=== PATIENT | male | born 1980 | race Caucasian/White ===

== ENCOUNTER 2017-05-27 07:39 | Emergency (ER) | payer OTHER ==
[2017-05-27 08:08] VITALS: BP 137/89; PULSE 79; RESP 16; TEMP 97.9; O2SAT 96
--- NOTE | 2017-05-27 08:18 | EDPHY ---
H & P Stated Complaint: pain in testicals 3 weeks Time Seen by Provider: 05/27/17 08:08 HPI/ROS: CHIEF COMPLAINT: Urethral pain HISTORY OF PRESENT ILLNESS: Patient is a 36-year-old man with no significant past medical history who comes to the emergency department complaining of mild urethral discomfort and stinging. He states that it dose not necessarily happen when he urinates but just randomly. No erythema or swelling or discoloration. No discharge. He has been monogamous with the same female for over a year. He states that they did try rectal intercourse 3 weeks ago and is condom broke. He has been concerned ever since. He thinks that it may be in his head but he is worried that he got an infection. No belly pain. No testicular pain. No flank pain. No fever. No pain with ejaculation. REVIEW OF SYSTEMS: Constitutional: denies: chills, fever, recent illness, recent injury EENTM: denies: blurred vision, double vision, nose congestion Respiratory: denies: cough, shortness of breath Cardiac: denies: chest pain, irregular heart rate, lightheadedness, palpitations Gastrointestinal/Abdominal: denies: abdominal pain, diarrhea, nausea, vomiting, blood streaked stools Genitourinary: See HPI, denies: dysuria, frequency, hematuria Musculoskeletal: denies: joint pain, muscle pain Skin: denies: lesions, rash, jaundice, bruising Neurological: denies: headache, numbness, paresthesia, tingling, dizziness, weakness Hematologic/Lymphatic: denies: blood clots, easy bleeding, easy bruising Immunologic/allergic: denies: HIV/AIDS, transplant EXAM: GENERAL: Well-appearing, well-nourished and in no acute distress. HEAD: Atraumatic, normocephalic. EYES: Pupils equal round and reactive to light, extraocular movements intact, sclera anicteric, conjunctiva are normal. ENT: TMs normal, nares patent, oropharynx clear without exudates. Moist mucous membranes. NECK: Normal range of motion, supple without lymphadenopathy or JVD. LUNGS: Breath sounds clear to auscultation bilaterally and equal. No wheezes rales or rhonchi. HEART: Regular rate and rhythm without murmurs, rubs or gallops. ABDOMEN: Soft, nontender, normoactive bowel sounds. No guarding, no rebound. No masses appreciated. : Normal exam, no discharge with milking. No testicular tenderness. Negative hernia exam, no erythema or swelling BACK: No CVA tenderness, no spinal tenderness, step-offs or deformities EXTREMITIES: Normal range of motion, no pitting or edema. No clubbing or cyanosis. NEUROLOGICAL: Cranial nerves II through XII grossly intact. Normal speech, normal gait. 5/5 strength, normal movement in all extremities, normal sensation PSYCH: Normal mood, normal affect. SKIN: Warm, dry, normal turgor, no visible rashes or lesions. Source: Patient Exam Limitations: No limitations - Personal History Tetanus Vaccine Date: unsure - Medical/Surgical History Hx Asthma: No Hx Chronic Respiratory Disease: No Hx Diabetes: No Hx Cardiac Disease: No Hx Renal Disease: No Hx Cirrhosis: No Hx Alcoholism: No Hx HIV/AIDS: No Hx Splenectomy or Spleen Trauma: No Other PMH: ortho surgeries, lung surgery, 17 eye surgeries, concussions, - Family History Significant Family History: No pertinent family hx - Social History Smoking Status: Current every day smoker Alcohol Use: Sober Drug Use: None Constitutional: Initial Vital Signs Temperature (C) 36.6 C 05/27/17 08:04 Heart Rate 79 05/27/17 08:04 Respiratory Rate 16 05/27/17 08:04 Blood Pressure 137/89 H 05/27/17 08:04 O2 Sat (%) 96 05/27/17 08:04 O2 Delivery Mode Room Air Allergies/Adverse Reactions: Penicillins Allergy (Verified 05/27/17 08:08) Home Medications: Medication Instructions Recorded Cephalexin [Keflex] 500 mg PO TID #21 cap 05/27/17 Medical Decision Making ED Course/Re-evaluation: Will treat the patient for presumed urinary tract infection. He is quite confident that he is not at risk for STDs. I will test for this as well however. We will send urine cultures. Patient thinks that this may all be in his head but was to get it checked for sure. Agree with this plan. I will start him on Keflex presumptively at this time. Differential Diagnosis: Partial list of the Differential diagnosis considered include but were not limited to; urinary tract infection, STD and although unlikely based on the history and physical exam, I also considered , anxiety testicular torsion, kidney stone epididymitis. I discussed these differential diagnoses and the plan with the patient as well as the usual and expected course. The patient understands that the diagnosis is provisional and that in medicine we are not always correct and that further workup is often warranted. Usual and customary warnings were given. All of the patient's questions were answered. The patient was instructed to return to the emergency department should the symptoms at all worsen or return, otherwise to followup with the physician as we discussed. - Data Points Laboratory Results: 05/27/17 05/27/17 08:30 08:05 Urine Color YELLOW Urine Appearance CLEAR Urine pH 5.5 (5.0-7.5) Ur Specific [place] <= 1.005 (1.002-1.030) Urine Protein NEGATIVE (NEGATIVE) Urine Ketones NEGATIVE (NEGATIVE) Urine Blood NEGATIVE (NEGATIVE) Urine Nitrate NEGATIVE (NEGATIVE) Urine Bilirubin NEGATIVE (NEGATIVE) Urine Urobilinogen 0.2 EU EU (0.2-1.0) Ur Leukocyte Esterase NEGATIVE (NEGATIVE) Urine RBC 0-1 /hpf /hpf (0-3) Urine WBC NONE SEEN /hpf /hpf (0-3) Ur Epithelial Cells TRACE /lpf /lpf (NONE-1+) Amorphous Sediment TRACE /hpf /hpf (NONE-1+) Urine Bacteria TRACE /hpf H /hpf (NONE SEEN) Urine Glucose NEGATIVE (NEGATIVE) C.trachomatis RNA (TMA) Pending N.gonorrhoeae RNA (TMA) Pending Departure - Departure Disposition: Home, Routine, Self-Care Clinical Impression: Urethral irritation Condition: Good Instructions: Urinary Tract Infection in Men (ED) Additional Instructions: Your urine culture results will be back in 2 days. If they are negative she may discontinue the antibiotics. Referrals: NONE *PRIMARY CARE P,. [Primary Care Provider] - As per Instructions Prescriptions: Cephalexin [Keflex] 500 mg PO TID #21 cap
[2017-05-27 08:43] LABS: COLOR YELLOW; LEUKOCYTE ESTERASE,URINE NEGATIVE (NEGATIVE); NITRITE,URINE NEGATIVE (NEGATIVE); PH,URINE 5.5 (5.0-7.5)
[2017-05-27 09:06] LABS: RBC,URINE 0-1 /hpf (0-3); WBC,URINE NONE SEEN /hpf (0-3)
[2017-05-27 09:07] LABS: AMORPHOUS TRACE /hpf (NONE-1+); BACTERIA TRACE /hpf (NONE SEEN)
[2017-05-28 14:19] LABS: CHLAMYDIA AMPLIFICATION GENPRB NEGATIVE (NEGATIVE)
== END 2017-05-27 08:41 | disposition home or self-care (01) ==
LOC: CED 07:39
DX: N32.89 Other specified disorders of bladder (principal); F17.200 Nicotine dependence, unspecified, uncomplicated
CPT/HCPCS: 81003-PO; 81015-PO

== ENCOUNTER 2017-06-26 07:15 | Emergency (ER) | payer OTHER ==
[2017-06-26] MEDS ORDERED: cefTRIAXone 250 MG VIAL IM ONE (07:27)
[2017-06-26] MEDS ORDERED: AZITHROMYCIN 250 MG TAB PO ONE (07:27)
[2017-06-26 07:30] VITALS: BP 132/98; PULSE 74; RESP 12; TEMP 97.7; O2SAT 97
--- NOTE | 2017-06-26 07:34 | EDPHY ---
H & P Time Seen by Provider: 06/26/17 07:18 HPI/ROS: HPI Urinary complaints. 36-year-old male by private vehicle. This patient complains of intermittent burning with urination ongoing for about a month now. He was seen in the emergency department approximately 1 month ago here. He was not tested for STIs at that time. His urinalysis was negative. He was treated for a urinary tract infection with Keflex. I reviewed his culture results from that visit and there was no growth. He states that he has been with a girl and has been monogamous. He reports last sexual relation was about 2-3 weeks ago. He reports that he broke up with her because he found out that she was engaged with multiple other sexual partners. He reports that over the last 2-3 weeks he has had more of a sensation of intermittent burning and discomfort in his urethra with urinating. He denies any gross hematuria discoloration of urinary no purulent discharge. No penile or genital lesions. He denies fever. No other complaints ROS: Constitutional: No fever, no chills. No weakness. Respiratory: No cough. No shortness of breath. Cardiac: No chest pain, no palpitations. Gastrointestinal: No abdominal pain, no vomiting, no diarrhea. Genitourinary: No hematuria. As above. Musculoskeletal: No back pain. No neck pain. No myalgias or arthralgias. Skin: No rashes. Neurological: No headache. No focal weakness or altered sensation. Past medical history: Significant past medical history. No prescription medications. Social history: As above. He is here by herself. Nonsmoker. Drinks alcohol socially. Denies IV drugs or street drugs. Physical Exam: General Appearance: Alert, no distress. This patient is responding to questions appropriately and in full sentences. This patient appears well- hydrated and well-nourished. Eyes: Pupils equal and round no pallor or injection. No lid edema, erythema or injection. : Testicles are normal on exam. Normal lie. No epididymal swelling or tenderness. No ecchymosis or erythema. No warmth. No masses. No local evidence of torsion. No testicular or penile lesions. No purulence expressed at the penile meatus. No evidence of traumatic genital injury. Gastrointestinal: Abdomen is soft and nontender, no masses, bowel sounds normal. No focal tenderness at McBurney's point. No De León sign. Neurological: Motor sensory function is grossly intact. Cranial nerves are normal. Gait is normal. Skin: Warm and dry, no rashes. Musculoskeletal: Neck is supple and nontender. Extremities are symmetrical. All joints range without pain or impingement. Psychiatric: No agitation. No depression. Database: EKG: Imaging: Procedures: Emergency department course: Urine specimen obtained. Urinalysis results reviewed. She is assays ordered. Results to be obtained in approximately 3 days. This is the patient's 2nd visit for this complaint. He is concerned about sexually transmitted infection. He will be treated accordingly with a g of oral azithromycin and 250 mg of IM Rocephin to be given emergency department. 7:50 a.m., patient re-evaluated. Resting comfortably at this time. I discussed the results of his urinalysis. I explained that he needed to follow up on results of his GC and chlamydia test. He will do this. I will provide him with referral to a urologist for re-evaluation and further management giving this is 2nd visit for this type of complaint. He is in agreement with this plan. Return to emergency department precautions reviewed with him. All of his questions were answered. He was discharged in good condition. Differential Diagnosis: The differential diagnosis on this patient includes but is not limited to sexually transmitted infection, urinary tract infection, urethral inflammation. This represents a partial list of diagnoses considered. These considerations are based on history, physical exam, past history, reassessment and diagnostic testing. Smoking Status: Current every day smoker Constitutional: Initial Vital Signs Temperature (C) 36.5 C 06/26/17 07:25 Heart Rate 74 06/26/17 07:25 Respiratory Rate 12 06/26/17 07:25 Blood Pressure 132/98 H 06/26/17 07:25 O2 Sat (%) 97 06/26/17 07:25 O2 Delivery Mode Room Air Allergies/Adverse Reactions: Penicillins Allergy (Verified 06/26/17 07:29) Home Medications: Medication Instructions Recorded Cephalexin [Keflex] 500 mg PO TID #21 cap 05/27/17 Medical Decision Making - Data Points Laboratory Results: 06/26/17 06/26/17 07:35 07:35 Urine Color YELLOW Urine Appearance CLEAR Urine pH 6.5 (5.0-7.5) Ur Specific [place] 1.015 (1.002-1.030) Urine Protein NEGATIVE (NEGATIVE) Urine Ketones NEGATIVE (NEGATIVE) Urine Blood NEGATIVE (NEGATIVE) Urine Nitrate NEGATIVE (NEGATIVE) Urine Bilirubin NEGATIVE (NEGATIVE) Urine Urobilinogen 0.2 EU EU (0.2-1.0) Ur Leukocyte Esterase NEGATIVE (NEGATIVE) Urine RBC NONE SEEN /hpf /hpf (0-3) Urine WBC 0-1 /hpf /hpf (0-3) Ur Epithelial Cells NONE SEEN /lpf /lpf (NONE-1+) Urine Glucose NEGATIVE (NEGATIVE) C.trachomatis RNA (TMA) Pending N.gonorrhoeae RNA (TMA) Pending Medications Given: Discontinued Medications Azithromycin (Zithromax) 1,000 mg PO EDNOW ONE PRN Reason: Protocol Stop: 06/26/17 07:28 Last Admin: 06/26/17 07:38 Dose: 1,000 mg Ceftriaxone Sodium (Rocephin 250mg Vial) 250 mg IM EDNOW ONE PRN Reason: Protocol Stop: 06/26/17 07:28 Last Admin: 06/26/17 07:47 Dose: 250 mg Departure - Departure Disposition: Home, Routine, Self-Care Clinical Impression: Dysuria Condition: Good Instructions: Dysuria (ED) Additional Instructions: Read and follow provided instructions. Follow-up with with Urology as discussed next week for re-evaluation and any further management. I have provided you with a referral to a urologist. Call their office for appointment today. Take medication as prescribed. Return to the emergency department for worsening pain, discharge, fever, back pain or other serious concerns. Referrals: Carloz Aldridge MD [Medical Doctor] - As per Instructions
[2017-06-26 07:38] LABS: COLOR YELLOW; LEUKOCYTE ESTERASE,URINE NEGATIVE (NEGATIVE); NITRITE,URINE NEGATIVE (NEGATIVE); PH,URINE 6.5 (5.0-7.5)
[2017-06-26 07:45] LABS: RBC,URINE NONE SEEN /hpf (0-3); WBC,URINE 0-1 /hpf (0-3)
[2017-06-27 12:31] LABS: CHLAMYDIA AMPLIFICATION GENPRB NEGATIVE (NEGATIVE)
== END 2017-06-26 08:10 | disposition home or self-care (01) ==
LOC: CED 07:15
DX: R30.0 Dysuria (principal); F17.200 Nicotine dependence, unspecified, uncomplicated
CPT/HCPCS: 81003-PO; 81015-PO; J0696